=== PATIENT | male | born 1980 | race Two or more races ===

== ENCOUNTER → 2024-09-26 | Emergency (ER) | payer OTHER ==
[~2024-09-26] VITALS: Ht 190.5 cm; Wt 117.9 kg
[~2024-09-26] MED LIST: 0.9 % SODIUM CHLORIDE 1,000 ML IV ONE; AMLODIPINE; ATORVASTATIN CA10 MG; HYDROCHLOROTH12.5 M2; LEVOTHYROXINE25 MCG
[2024-09-26 10:53] LABS: BASO % 0.9 % (0.1-1.2); EOS # 0.21 (0.04-0.54); EOS % 2.8 % (0.7-7.0); HEMATOCRIT 36.6 % (40.1-51.0); HEMOGLOBIN 12.6 g/dL (13.7-17.5); LYMPH # 1.52 (1.18-3.74); LYMPH % 20.4 % (19.3-53.1); MEAN CORPUSCULAR HEMOGLOBIN 29.9 pg (25.6-32.2); MONO # 0.64 (0.24-0.82); MONO % 8.6 % (4.7-12.5); NEUT # 4.99 (1.56-6.13); PLATELET COUNT 190 K/uL (163-369); RED BLOOD COUNT 4.21 M/uL (4.63-6.08); RED CELL DISTRIBUTION WIDTH 12.7 % (11.6-14.4)
[2024-09-26 11:14] LABS: INR 0.99; PARTIAL THROMBOPLASTIN TIME 23.5 SECONDS (22.0-34.0); PROTHROMBIN TIME 10.8 SECONDS (9.0-11.5)
[2024-09-26 11:30] LABS: COVID-19 AG NEGATIVE (NEGATIVE)
[2024-09-26 11:49] LABS: ALBUMIN 3.8 gm/dL (3.4-5.0); BILIRUBIN TOTAL 0.66 mg/dL (0.3-1.2); CALCIUM 8.9 mg/dL (8.5-10.1); CREATININE SERUM 1.62 mg/dL (0.70-1.30); GFR 46.31; GLOBULINA 2.8 G/DL (2.4-3.5); POTASSIUM 3.67 mEq/L (3.5-5.1); TOTAL PROTEIN 6.6 gm/dL (6.4-8.2)
[2024-09-26 11:52] LABS: TSH 8.23 uIU/mL (0.358-3.74)
== END | disposition left against medical advice (07) ==
LOC: ER 09:40
PROVIDERS: General Practice
DX: R55 Syncope and collapse (principal); E03.9 Hypothyroidism, unspecified